=== PATIENT | female | born 1955 | race Caucasian/White ===

== ENCOUNTER 2022-08-16 17:46 | Observation (INO) ==
[2022-08-16] MEDS ORDERED: MORPHINE 2 MG/1 ML SYRINGE IV PRN (20:33)
[2022-08-16] MEDS ORDERED: ACETAMINOPHEN 325 MG TABLET PO PRN (20:33)
[2022-08-16] MEDS ORDERED: NITROGLYCERIN SL 0.4 MG TABLET SL PRN (20:33)
[2022-08-17 00:40] LABS: Basophils % 0.3 % (0.0-0.8); Eosinophils % 0.5 % (0.00-10.9); Hematocrit 34.9 VOL% (35.7-47.0); Hemoglobin 11.8 GM/DL (12.0-16.0); Immature Granulocytes % 0.3 %; Immature Granulocytes Absolute 0.02 #; Lymphocytes # 1.3 10*3/uL (1.4-4.0); Lymphocytes % 21.8 % (21.3-54.2); Mean Corpuscular HGB Conc 33.8 GM/DL (32-36); Mean Corpuscular Volume 92.1 FL (87-102); Mean Platelet Volume 10.7 FL (9.6-12.0); Monocytes # 0.4 10*3/uL (0.11-0.8); Monocytes % 7.6 % (1.7-12.7); Neutrophils % 69.5 % (38.7-73.9); Platelet Count 142 T/CUMM (130-400); Red Blood Count 3.79 MC/CUMM (3.8-5.5); White Blood Count 5.8 T/CUMM (4-12)
[2022-08-17 00:56] LABS: Alanine Aminotransferase 22 U/L (13-56); Albumin 3.5 G/DL (3.4-5.0); Alkaline Phosphatase 78 U/L (45-117); Aspartate Amino Transferase 29 U/L (0-37); Bilirubin,Total < 0.39 MG/DL (0.20-1.00); Blood Urea Nitrogen 19 MG/DL (7-18); Calcium 8.5 MG/DL (8.5-10.1); Carbon Dioxide 24 MMOL/L (21-32); Chloride 110 MMOL/L (98-107); Glucose 113 MG/DL (74-106); Osmolality,Calculated 285.1 MOS/KG (273-304); Potassium 3.8 MMOL/L (3.5-5.1); Sodium 142 MMOL/L (136-145); Total Protein 6.7 G/DL (6.4-8.2)
[2022-08-17 00:57] LABS: CKMB % 10.37 %
[2022-08-17 00:59] LABS: INR 0.9; PT Patient Result 10.4 SECS (10.1-12.1); Partial Thromboplastin Time 35.4 SECS (23.7-32.9)
[2022-08-17 01:03] LABS: High Sensitive Troponin I* 4854.2 ng/L (0-54)
[2022-08-17 05:25] LABS: Basophils % 0.4 % (0.0-0.8); Eosinophils # 0.1 10*3/uL (0.0-0.87); Hematocrit 36.7 VOL% (35.7-47.0); Hemoglobin 11.8 GM/DL (12.0-16.0); Immature Granulocytes % 0.4 %; Immature Granulocytes Absolute 0.02 #; Lymphocytes # 1.2 10*3/uL (1.4-4.0); Lymphocytes % 22.7 % (21.3-54.2); Mean Corpuscular HGB Conc 32.2 GM/DL (32-36); Mean Corpuscular Volume 94.8 FL (87-102); Mean Platelet Volume 11.4 FL (9.6-12.0); Monocytes # 0.4 10*3/uL (0.11-0.8); Monocytes % 7.2 % (1.7-12.7); Neutrophils % 68.3 % (38.7-73.9); Platelet Count 130 T/CUMM (130-400); Red Blood Count 3.87 MC/CUMM (3.8-5.5); Red Cell Distribution Width 13.2 % (9.3-17.3); White Blood Count 5.2 T/CUMM (4-12)
[2022-08-17 05:41] LABS: Calcium 8.4 MG/DL (8.5-10.1); Osmolality,Calculated 284.1 MOS/KG (273-304); Potassium 4.1 MMOL/L (3.5-5.1); Risk Ratio 3.22; Thyroid Stimulating Hormone 3.17 uIU/ml (0.358-3.74); VLDL Cholesterol 35.8 MG/DL
[2022-08-17] MEDS ORDERED: ENOXAPARIN 60 MG/0.6 ML SYRINGE SUBCUT SCH (06:00)
[2022-08-17] MEDS ORDERED: ASPIRIN EC 325 MG TABLET PO SCH (09:00)
[2022-08-17] MEDS ORDERED: ENOXAPARIN 40 MG/0.4 ML SYRINGE SUBCUT SCH (09:00)
[2022-08-17] MEDS ORDERED: traZODone 50 MG TABLET PO SCH ×2 (09:00→21:00)
[2022-08-17] MEDS: FLUTICASONE 50 MCG NASAL SPRAY 16 GM BOTTLE BOTH NARES SCH ×2 (09:51→20:38)
[2022-08-17] MEDS ORDERED: BIVALIRUDIN 250 MG in SODIUM CHLORIDE 0.9% 50 ML IV SCH (13:18)
[2022-08-17] MEDS: ESCITALOPRAM 10 MG TABLET PO SCH (13:23)
[2022-08-17] MEDS: MELOXICAM 7.5 MG TABLET PO SCH (13:23)
[2022-08-17] MEDS: PANTOPRAZOLE 40 MG TABLET PO SCH (13:24)
[2022-08-17] MEDS ORDERED: DIAZEPAM 5 MG TABLET PO ONE (13:47)
[2022-08-17] MEDS ORDERED: MAGNESIUM SULF RIDER 2 GM/50 ML PREMIX IV PRN (13:57)
[2022-08-17] MEDS ORDERED: POTASSIUM CHLORIDE RIDER 10 MEQ/100 ML PREMIX IV PRN (13:57)
[2022-08-17] MEDS ORDERED: HEPARIN/NACL 0.9% 2 UNITS/ML 2,000 UNIT/1,000 ML BAG IV ONE (14:33)
[2022-08-17] MEDS: SODIUM CHLORIDE 0.9% 1,000 ML IV SCH ×2 (14:46→20:37)
[2022-08-17] MEDS ORDERED: HYDROmorphone 1 MG/1 ML SYRINGE ONE (14:46)
[2022-08-17] MEDS ORDERED: MIDAZOLAM 2 MG/2 ML VIAL ONE (14:46)
[2022-08-17] MEDS ORDERED: BIVALIRUDIN 250 MG VIAL IV ONE (15:12)
[2022-08-17] MEDS ORDERED: TICAGRELOR 90 MG TABLET ONE (15:35)
[2022-08-17] MEDS ORDERED: ONDANSETRON 4 MG/2 ML VIAL ONE (15:54)
[2022-08-17] MEDS: ONDANSETRON 4 MG/2 ML VIAL IV PRN ×2 (15:56→20:33)
[2022-08-17 16:40] LABS: CKMB % 12.32 %
[2022-08-17 16:44] LABS: High Sensitive Troponin I* 9998.9 ng/L (0-54)
[2022-08-17] MEDS: TICAGRELOR 90 MG TABLET PO SCH (20:36)
[2022-08-17] MEDS: carvediloL 3.125 MG TABLET PO SCH (20:36)
[2022-08-17] MEDS ORDERED: buPROPion SR 100 MG TABLET PO SCH (21:00)
[2022-08-17] MEDS ORDERED: SIMVASTATIN 10 MG TABLET PO SCH (21:00)
[2022-08-18 00:36] LABS: Basophils % 0.2 % (0.0-0.8); Eosinophils % 0.4 % (0.00-10.9); Hematocrit 33.9 VOL% (35.7-47.0); Hemoglobin 10.8 GM/DL (12.0-16.0); Immature Granulocytes % 0.6 %; Immature Granulocytes Absolute 0.03 #; Lymphocytes # 0.8 10*3/uL (1.4-4.0); Lymphocytes % 15.9 % (21.3-54.2); Mean Corpuscular HGB Conc 31.9 GM/DL (32-36); Mean Corpuscular Volume 94.2 FL (87-102); Mean Platelet Volume 10.2 FL (9.6-12.0); Monocytes # 0.4 10*3/uL (0.11-0.8); Monocytes % 7.4 % (1.7-12.7); Neutrophils % 75.5 % (38.7-73.9); Platelet Count 122 T/CUMM (130-400); Red Cell Distribution Width 13.2 % (9.3-17.3)
[2022-08-18 00:54] LABS: Calcium 8.1 MG/DL (8.5-10.1); Osmolality,Calculated 284.1 MOS/KG (273-304); Potassium 4.3 MMOL/L (3.5-5.1)
[2022-08-18 00:58] LABS: CKMB % 11.38 %
[2022-08-18 08:09] LABS: CKMB % 9.72 %; High Sensitive Troponin I* 6098.7 ng/L (0-54)
[2022-08-18] MEDS ORDERED: MAGNESIUM SULF RIDER 2 GM/50 ML PREMIX IV ONE (08:30)
[2022-08-18] MEDS: carvediloL 3.125 MG TABLET PO SCH (08:59)
[2022-08-18] MEDS: PANTOPRAZOLE 40 MG TABLET PO SCH (08:59)
[2022-08-18] MEDS: ESCITALOPRAM 10 MG TABLET PO SCH (08:59)
[2022-08-18] MEDS: TICAGRELOR 90 MG TABLET PO SCH (08:59)
[2022-08-18] MEDS: MELOXICAM 7.5 MG TABLET PO SCH (08:59)
[2022-08-18] MEDS: SODIUM CHLORIDE 0.9% 1,000 ML IV SCH ×2 (09:00→09:45)
[2022-08-18] MEDS ORDERED: ASPIRIN EC 81 MG TABLET PO SCH (09:00)
[2022-08-18] MEDS ORDERED: SPIRONOLACTONE 25 MG TABLET PO SCH (09:00)
[2022-08-18] MEDS ORDERED: ROSUVASTATIN 20 MG TABLET PO SCH (09:00)
[2022-08-18] MEDS: FLUTICASONE 50 MCG NASAL SPRAY 16 GM BOTTLE BOTH NARES SCH (09:05)
[2022-08-18 12:21] VITALS: BP 98/61
== END 2022-08-18 13:15 | disposition home or self-care (01) ==
LOC: N.TELEN → SUATTDRO 20:19
PROVIDERS: ADMIT Internal Medicine; ATTEND Emergency Medicine
PROC: CLCCHCL (ICD-10-PCS; 2022-08-17 15:00)